=== PATIENT | male | born 1955 | race Caucasian/White ===

== ENCOUNTER → 2017-01-31 | Day surgery (SDC) | payer MEDICAID ==
[~2017-01-31] MED LIST: Albuterol 0.083% 2.5 MG/3 ML Neb Soln NEB ONE; Ampicillin/Sulbactam Na 3 GM in Sodium Chloride 0.9% 100 ML IV ONE; Bupivacaine 0.5% 30 ML SDV ONE; Bupivacaine 0.5%/EPINEPHrine 1:200,000 50 ML MDV ONE; HYDROmorphone 1 MG/ML Syringe ONE; Iopamidol 612 MG/ML 50 ML SDV ONE; Lactated Ringers 1,000 ML IV SCH; Lactated Ringers 1,000 ML ONE; Lidocaine 1% 4 ML ONE; Lidocaine 1%/Sod Bicarbonate in NS 8.4% 1 ML Syringe IV PRN; Meperidine PF 50 MG/ML Syringe IVPUSH PRN; Midazolam 1 MG/ML 2 ML SDV ONE; Ondansetron 4 MG/2 ML SDV IVPUSH PRN; Ondansetron 4 MG/2 ML SDV ONE; Promethazine 25 MG/ML SDV IM PRN; Propofol 200 MG/20 ML SDV ONE; Rocuronium 50 MG/5 ML Vial ONE; Sodium Chloride 0.9% 10 ML Syringe FLUSH PRN; Sodium Chloride 0.9% 50 ML SDV ONE; fentaNYL 100 MCG/2 ML SDV IVPUSH ONE; fentaNYL 250 MCG/5 ML SDV ONE
--- NOTE | 2017-01-31 09:28 | PCM.PREANE ---
Preanesthetic Assessment - Anesthesia/Transfusion/Family Hx Anesthesia History: Prior Anesthesia Without Reaction Family History of Anesthesia Reaction: No Transfusion History: No Prior Transfusion(s) - Review of Systems General: Fatigue Pulmonary: Cough (smoker) Cardiovascular: Other (abd and chest pain due to gall bladder) Gastrointestinal: Abdominal Pain Neurological: No Symptoms Other: Reports: Thyroid Problems, Sinus Problem (drains occasionally) - Physical Assessment NPO Status Date: 01/30/17 NPO Status Time: 21:00 (sip water at 7) Pulse: 52 O2 Sat by Pulse Oximetry: 96 Respiratory Rate: 16 Blood Pressure: 115/83 Temperature: 97.7 F Height: 5 ft 9 in Weight: 83.007 kg ASA Class: 3 Mental Status: Alert & Oriented x3 Airway Class: Mallampati = 1 Dentition: Reports: Broken Tooth/Teeth (bottom teeth broken and caries), Missing Tooth/Teeth (no top teeth), Caries Thyro-Mental Finger Breadths: 3 Mouth Opening Finger Breadths: 3 ROM/Head Extension: Full Lungs: Normal Respiratory Effort, Decreased Breath Sounds, Wheezing Cardiovascular: Regular Rate, Regular Rhythm - Lab Values: Labs as noted on anesthesia record. Reviewed prior to OR - Imaging/EKG Impressions: 01/31/17 EKG Sr - Allergies Allergies/Adverse Reactions: Allergies Allergy/AdvReac Type Severity Reaction Status Date / Time No Known Allergies Allergy Verified 01/28/17 09:55 - Blood Blood Available: No - Anesthesia Plan Pre-Op Medication Ordered: None - Acknowledgements Anesthesia Type Planned: General Anesthesia Pt an Appropriate Candidate for the Planned Anesthesia: Yes Alternatives and Risks of Anesthesia Discussed w Pt/Guardian: Yes Pt/Guardian Understands and Agrees with Anesthesia Plan: Yes PreAnesthesia Questionnaire HEENT History: Reports: Impaired Vision, Other (See Below) Other HEENT History: wears glasses Cardiovascular History: Reports: High Cholesterol, Other (See Below) Other Cardiovascular History: bradycardia Respiratory History: Reports: COPD, Other (See Below) Other Respiratory History: panlobular emyphysema Gastrointestinal History: Reports: Other (See Below) Other Gastrointestinal History: epigastric pain Genitourinary History: Reports: Renal Calculus, Other (See Below) Other Genitourinary History: stage III renal insufficiency, bacetermia, renal calculus with removal RN OFFICE History: Reports: None Musculoskeletal History: Reports: None Neurological History: Reports: None Other Neuro History: chronic fatigue Psychiatric History: Reports: None Endocrine/Metabolic History: Reports: Hypothyroidism Hematologic History: Reports: Other (See Below) Other Hematologic History: bacteremia Immunologic History: Reports: None Oncologic (Cancer) History: Reports: None Dermatologic History: Reports: None - Past Surgical History Head Surgeries/Procedures: Reports: None GI Surgical History: Reports: Colonoscopy Female Surgical History: Reports: None Male Surgical History: Reports: None, Other (See Below) Other Male Surgeries/Procedures: kidney stone removal Neurological Surgical History: Reports: None Oncologic Surgical History: Reports: None Dermatological Surgical History: Reports: None - SUBSTANCE USE Smoking Status *Q: Current Every Day Smoker Tobacco Use Within Last Twelve Months: Cigarettes Second Hand Smoke Exposure: Yes Days Per Week of Alcohol Use: 0 (seldom) Recreational Drug Use History: No Recreational Drug Type: Reports: Marijuana/Hashish (denies) - HOME MEDS Home Medications: Home Meds Levothyroxine [Synthroid] 1 tab PO DAILY 04/19/16 [History] Tamsulosin [Flomax] 0.4 mg PO DAILY 04/19/16 [History] Pravastatin Sodium [Pravastatin (Pravachol)] 40 mg PO DAILY 01/28/17 [History] - CURRENT (IN HOUSE) MEDS Current Meds: Current Medications Lactated Ringer's (Ringers, Lactated) 1,000 mls @ 125 mls/hr IV ASDIRECTED KAYLIE Stop: 01/31/17 23:00 Ampicillin Sodium/Sulbactam (Sodium 3 gm/ Sodium Chloride) 100 mls @ 200 mls/ hr IV ONETIME ONE Stop: 01/31/17 09:29 Lidocaine/Sodium Bicarbonate (Buffered Lidocaine 1% In Ns 8.4%) 0.25 ml IV ONETIME PRN PRN Reason: Prior to IV Start Stop: 01/31/17 18:00 Sodium Chloride (Saline Flush) 10 ml FLUSH ASDIRECTED PRN PRN Reason: Keep Vein Open Stop: 01/31/17 18:00
--- NOTE | 2017-01-31 12:30 | CR ---
Operative cholangiogram: Multiple fluoroscopic spot views utilizing C-arm device were obtained in the operating room. Findings: Opacification of the main right and left intrahepatic ducts are seen which are dilated. CHD and CBD are dilated. There is a filling defect being seen within the distal CBD felt compatible with retained obstructing stone. Minimal amount of contrast passes around the stone into the duodenum. Small amount of contrast extravasation is seen. Impression: 1. Dilated intrahepatic and extrahepatic ducts. Filling defect is identified within the distal CBD compatible with obstructing stone. Minimal amount of contrast extends around the stone into the duodenum. Mild amount of extravasation is seen outside the biliary tree. Diagnostic code #5
--- NOTE | 2017-01-31 13:23 | PCM.OPNOTE ---
- General Post-Op/Procedure Note Date of Surgery/Procedure: 01/31/17 Operative Procedure(s): lap troy with IOC and reapir of common duct Findings: dilated common and interahepatic ducts with obstructions stone in the distal duct Pre Op Diagnosis: cholelithiasis and chronic troy cystitis Post-Op Diagnosis: Same EBL in mLs: 10 Complications: injury to comon duct Condition: Good
--- NOTE | 2017-01-31 13:41 | PCM.POSTAN ---
POST ANESTHESIA ASSESSMENT - MENTAL STATUS Mental Status: Somnolent - VITAL SIGNS Pulse Rate: 61 SaO2: 92 Resp Rate: 19 Blood Pressure: 131/79 Temperature: 98.8 F - RESPIRATORY Respiratory Status: Respiratory Rate WNL, Airway Patent, O2 Saturation Stable, Supplemental Oxygen - CARDIOVASCULAR CV Status: Pulse Rate WNL, Blood Pressure Stable - GASTROINTESTINAL GI Status: No Symptoms - PAIN Pain Score: 0 - POST OP HYDRATION Hydration Status: Adequate & Stable
[2017-01-31] MEDS: HYDROmorphone 0.5 MG/0.5 ML Syringe IVPUSH PRN ×2 (14:06→14:26)
[2017-01-31] MEDS: fentaNYL 100 MCG/2 ML SDV IVPUSH PRN ×4 (14:15→14:44)
[2017-01-31] MEDS: hydrALAZINE 20 MG/ML SDV IVPUSH PRN ×4 (14:56→15:45)
--- NOTE | 2017-01-31 15:01 | PCM48HPAN ---
Post Anesthesia Note - EVALUATION WITHIN 48HRS OF ANESTHETIC Vital Signs in Normal Range: No (high BP- apresoline ordered to titrate) Patient Participated in Evaluation: Yes Respiratory Function Stable: Yes Airway Patent: Yes (o2 via mask) Cardiovascular Function Stable: Yes Hydration Status Stable: Yes Pain Control Satisfactory: Yes (states 8 pain- meds given) Nausea and Vomiting Control Satisfactory: Yes Mental Status Recovered: Yes
[2017-01-31 16:12] VITALS: BP 165/104
--- NOTE | 2017-02-01 08:33 | OR ---
DATE OF OPERATION: 01/31/2017 SURGEON: Theron Tran MD PREOPERATIVE DIAGNOSIS: Chronic cholecystitis, cholelithiasis. POSTOPERATIVE DIAGNOSIS: Chronic cholecystitis, cholelithiasis. OPERATION PERFORMED: Laparoscopic cholecystectomy with intraoperative cholangiogram with suture of laceration in the common duct done under general anesthetic. COMPLICATIONS: Injury to the common duct as described. FINDINGS: Findings on cholangiogram is dilated intrahepatic duct system with stone in the distal duct and ampulla of Vater. ESTIMATED BLOOD LOSS: About 10 mL. DESCRIPTION OF PROCEDURE: The patient was taken to the operating room and placed in a supine position, connected to monitoring equipment, given a general anesthetic and intubated. SCDs were placed. Antibiotics were given. The abdomen was clipped and prepped with DuraPrep and draped off in a sterile fashion. Incision was made above the umbilicus and using a 5 mm Optiport, the abdominal cavity was entered. Pneumoperitoneum was established and a 5 mm camera was inserted and the abdominal cavity scanned. Gallbladder was noted in the upper quadrant, it was shrunken and thickened. It was not dilated. The 10 mm trocar placed in the epigastric region, 5 mm trocar placed in the right upper and right lateral position. The deformed fundus of the gallbladder was retracted in cephalad position and the patient was placed in Trendelenburg position with a leftward tilt. The Mariia pouch was deformed, not clearly identified, and dissection was then performed by taking the omentum off the gallbladder. Not noting the Mariia pouch, lateral dissection of the gallbladder fundus down was performed and a small bile leak was noted. Dissection in this area was ceased and attention was directed medially in which the lateral attachments with the medial attachments of the gallbladder with gallbladder bed were taken down and the cystic duct and gallbladder was identified. This Calot's triangle was then dissected out and cystic artery was identified, secured with 2 clips and then cut. This allowed dissection of the cystic duct circumferentially and then it was elected to remove the gallbladder from the fundus down opening it up in the process and all the stones were sucked out. The posterior wall of the gallbladder was left in situ in the upper part. At this time, the anatomy could be seen and the initial dissection at the lateral aspect was felt to be the gallbladder's attachment to the liver where bile leak was noted was then judged to be an injury to the common duct. Gallbladder was removed and a cholangiocatheter was inserted, secured with a clip and cholangiocath and cholangiogram obtained showing some right and left hepatic ducts, dilated common duct, and dye flowing to a stone that was obstructing the distal common duct. I did not see any gross leak. This was interpreted with the help of the radiologist and consultation was obtained with the radiologist intraoperatively. The area was irrigated and it was elected to put a 3-0 Vicryl suture in the laceration of the common duct. This was done and was followed by a Ravinder- Shrestha drain which was placed in Morison's pouch and brought out through the port, the right lateral port. This completed the intraabdominal portion. Pneumoperitoneum ports were removed and the skin of each port closed with subdermal 4-0 Dexon suture, Steri-Strips, sterile dressing, and plan will be for him to have an ERCP and extraction of the stone and splint if necessary. ANESTHESIA: General. MMODAL /[id number]
== END ==
LOC: JD.SDS 08:54
PROVIDERS: ATTEND Surgery
DX: K80.10 Calculus of gallbladder with chronic cholecystitis without obstruction (principal); N18.3 Chronic kidney disease, stage 3 (moderate); J44.9 Chronic obstructive pulmonary disease, unspecified; Z98.890 Other specified postprocedural states; Z79.899 Other long term (current) drug therapy; Z79.82 Long term (current) use of aspirin; F17.210 Nicotine dependence, cigarettes, uncomplicated
CPT/HCPCS: 47562; 76000; 93005; 94664; J0295; J0360; J1170; J2250; J2405; J2550; J3010; J7030; J7120; Q9967; 00790; J2704